=== PATIENT | male | born 1985 | race Caucasian/White ===

== ENCOUNTER 2018-07-03 00:25 | Outpatient (CLI) | payer OTHER, SELFPAY ==
--- NOTE | 2018-07-03 09:48 | DI.RPTCT_ITS ---
SYMPTOM/DIAGNOSIS: PELVIC PAIN IN MALE R10.2 CT ABDOMEN AND PELVIS: CT scan of the abdomen and pelvis was performed following the uneventful administration of intravenous and oral contrast material. There are no priors for comparison. The lung bases are clear. There is no evidence of an hepatic mass. There are a few tiny hypodensities seen within the liver. They are too small for further characterization. The gallbladder is negative by CT criteria. There is no biliary ductal dilatation. The pancreas is unremarkable as are the spleen and adrenal glands. The kidneys show normal and symmetric enhancement. No evidence of a solid renal mass, calculus or obstruction is identified. The urinary bladder is intact and unremarkable. The prostate gland is unremarkable. A few tiny calcifications are seen within the prostate gland. The abdominal aorta is of normal caliber. No significant abdominal or pelvic adenopathy, ascites or pneumoperitoneum is present. Note is made of a small fat containing umbilical hernia. The bowel shows no evidence of an infection or inflammation. No findings to suggest bowel obstruction are present. There is a normal retrocecal appendix. Mild degenerative changes are seen at the L5-S1 disc space. The bones are otherwise unremarkable. IMPRESSION: 1. No evidence of an acute abdomen 2. A few tiny hypodensities in the liver. They are too small for further characterization but may reflect small cysts. 3. No evidence of a renal mass, calculus or obstruction. 4. No evidence of a urinary bladder mass.
[2018-07-03] MEDS: Omnipaque 350 MG/ML 50 ML BTL IJ (10:13)
[2018-07-03] MEDS: Breeza Beverage 473 ML BTL PO ×2 (10:14→10:15)
[2018-07-03] MEDS: Omnipaque 350 MG/ML 100 ML BTL IJ (11:18)
== END 2018-07-03 00:26 ==
PROVIDERS: PCP Physician Assistant Medical; Visit Provider Urology
DX: R10.33 Periumbilical pain (principal); K42.9 Umbilical hernia without obstruction or gangrene
CPT/HCPCS: 74177; J3490; Q9967

== ENCOUNTER 2018-08-09 15:54 | Outpatient (REF) | payer OTHER, SELFPAY ==
--- NOTE | 2018-08-09 11:10 | SOFT_PTH ---
PATIENT: Aleksandr Pierson LOC: [facility] U#:[id number] AGE/SX: 33/M ROOM: RE08/09/[address]: Jean Paul Mendez MD : 1985 BED: DIS: 08/09/2018 SPEC #: [id number] RECD: 08/09/18 17:13 STATUS: JAYE REQ #: [id number] HERBER: 08/09/18 11:[address]: Jean Paul Mendez DEPT: Surgical Specimen RECD BY: Radha Turcios ENTERED: 08/09/18 17:14 SP TYPE: SOFT OTHR DR: Krysta Bran Tissues: 1 - SOFT TISSUE [facility] Procedures: GROSS AND MICRO LEVEL 4 Comments: [id number]
== END 2018-08-09 16:14 ==
LOC: LBN 15:54
PROVIDERS: PCP Physician Assistant Medical; Visit Provider Urology
DX: A63.0 Anogenital (venereal) warts (principal)
CPT/HCPCS: 88305

== ENCOUNTER 2023-03-21 09:12 | Outpatient (REF) | payer OTHER, SELFPAY ==
[2023-03-21 17:47] LABS: PSA, Diagnostic 3.8 ng/mL (<=2.5)
[2023-03-24 13:24] LABS: Testosterone, Total 577 ng/dL (240-950)
== END 2023-03-21 09:13 | disposition home or self-care (01) ==
LOC: LBN 09:12
PROVIDERS: PCP Physician Assistant Medical; Visit Provider Urology
DX: R97.20 Elevated prostate specific antigen [PSA] (principal); N41.1 Chronic prostatitis; N52.9 Male erectile dysfunction, unspecified; G89.4 Chronic pain syndrome
CPT/HCPCS: 84403; 84153

== ENCOUNTER 2023-10-31 02:20 | Outpatient (CLI) | payer OTHER, SELFPAY ==
[2023-10-31 18:37] LABS: PSA, Diagnostic 1.3 ng/mL (<=2.5)
== END 2023-10-31 02:21 | disposition home or self-care (01) ==
PROVIDERS: PCP Physician Assistant Medical; Visit Provider Urology
DX: R97.20 Elevated prostate specific antigen [PSA] (principal)
CPT/HCPCS: 36415; 84153

== ENCOUNTER 2025-06-13 10:56 | Outpatient (CLI) | payer OTHER, SELFPAY ==
[2025-06-13 22:54] LABS: PSA, Diagnostic 1.1 ng/mL (<=2.5)
== END 2025-06-13 10:57 | disposition home or self-care (01) ==
LOC: LBO 10:56
PROVIDERS: PCP Physician Assistant Medical; Visit Provider Urology
DX: N41.1 Chronic prostatitis (principal); G89.4 Chronic pain syndrome; R97.20 Elevated prostate specific antigen [PSA]
CPT/HCPCS: 36415; 84153